=== PATIENT | male | born 1990 | race Hispanic/Latino ===

== ENCOUNTER 2020-10-17 23:58 | Inpatient (IN) | payer OTHER, SELFPAY ==
[2020-10-18] MEDS ORDERED: Dextrose 50% Abboject 50 ML SYRINGE IVP PRN (02:00)
[2020-10-18] MEDS ORDERED: Insulin Regular 300 UNITS/3 ML VIAL IVP SCH ×2 (02:00→04:45)
[2020-10-18] MEDS ORDERED: Dextrose 5% in Water 1,000 ML IV PRN ×2 (02:00→06:18)
[2020-10-18] MEDS ORDERED: Ondansetron PF 4 MG/2 ML Vial IVP PRN (02:07)
[2020-10-18] MEDS ORDERED: Ondansetron ODT 4 MG TAB PO PRN (02:07)
[2020-10-18] MEDS ORDERED: Dexamethasone 4 mg/ml Vial SLOW IVP SCH (02:30)
[2020-10-18] MEDS ORDERED: Ascorbic Acid 500 mg Chewable Tablet PO SCH (02:30)
[2020-10-18] MEDS ORDERED: Cholecalciferol 1,000 UNITS (25 MCG) TAB PO SCH (02:30)
[2020-10-18] MEDS: Sodium Chloride 0.9% 1,000 ML IV SCH ×2 (02:37→15:51)
[2020-10-18 03:03] VITALS: BMI 53.4
[2020-10-18] MEDS ORDERED: Dextrose 50% Abboject 50 ML SYRINGE SLOW IVP PRN (06:18)
[2020-10-18 06:33] LABS: #Monocytes 0.4 10x3/uL (0.0-1.1); #Neutrophils 5.8 10x3/uL (1.5-8.4); %Basophils 0.3 % (0.0-2.0); %Lymphocytes 7.6 % (18.0-47.0); %Neutrophils 85.4 % (40.0-75.0); Hemoglobin 15.4 g/dL (13.5-17.5); Mean Corpuscular HGB CONC 33.1 g/dL (32.0-36.0); Mean Corpuscular Hemoglobin 27.3 pg (27.0-33.0); Mean Corpuscular Volume 82.3 fl (81.2-95.1); Mean Platelet Volume 11.3 fl (7.4-10.4); Platelet Count 144 10x3/uL (150-450); RBC Distribution Width 13.6 % (11.5-14.5); Red Blood Cell (RBC) Count 5.65 10x6/uL (4.32-5.72); White Blood Cell (WBC) Count 6.8 10x3/uL (3.5-10.5)
[2020-10-18 07:05] LABS: Anion Gap 18 mmol/L (10-20); BUN (Urea Nitrogen) 10 mg/dL (8.9-20.6); CK (CPK) 575 U/L (30-200); Calc. Creatinine Clearance 313 mL/min (70-130); Calcium 7.3 mg/dL (7.8-10.44); Carbon Dioxide 23 mmol/L (22-29); Chloride 97 mmol/L (98-107); Glucose 290 mg/dL (70-105); Magnesium 1.9 mg/dL (1.6-2.6); Potassium 3.8 mmol/L (3.5-5.1); Sodium 134 mmol/L (136-145)
[2020-10-18 07:06] LABS: D-Dimer Test 0.28 mg/L FEU (0.19-0.50); PTT 29.2 sec (22.0-33.0); Prothrombin Time 11.4 sec (9.5-12.1)
[2020-10-18] MEDS ORDERED: Lantus 1000 UNITS/10 ML VIAL SC SCH ×2 (09:00→21:00)
[2020-10-18] MEDS: Colchicine 0.6 MG TAB PO SCH (09:12)
[2020-10-18] MEDS: Aspirin 81 mg Enteric Coated Tablet PO SCH (09:12)
[2020-10-18] MEDS: Ascorbic Acid 500 mg Chewable Tablet PO SCH (09:12)
[2020-10-18] MEDS: Cholecalciferol 1,000 UNITS (25 MCG) TAB PO SCH (09:12)
[2020-10-18] MEDS: Zinc Sulfate 220 MG CAP PO SCH (09:12)
[2020-10-18] MEDS: Acetaminophen 325 MG TAB PO PRN (09:13)
[2020-10-18] MEDS: HumaLOG 300 UNITS/3 ML VIAL SC SCH ×3 (09:13→17:32)
[2020-10-18] MEDS: Enoxaparin Sodium 120 MG/0.8 ML SYRINGE SC SCH ×2 (09:17→21:56)
[2020-10-18] MEDS: Dexamethasone 4 mg/ml Vial SLOW IVP SCH (09:20)
[2020-10-18] MEDS: Famotidine/PF 20 mg/2ml Vial SLOW IVP SCH ×2 (09:20→21:56)
[2020-10-18 18:19] LABS: Actual Bicarbonate (HCO3a) 21.2 mEq/L (22-28); Base Excess (BEa) -3.2 mEq/L (-2.0 to +3.0); CO2 Tension 36.5 mmHg (35.0-45.0); Calcium, Ionized (arterial) 1.04 mmol/L (1.12-1.30); Carboxyhemoglobin (COHb) 0.6 gm% (0.0-3.0); Hemoglobin (Hb) 16.5 g/dL (14.0-18.0); O2 Tension (PaO2), arterial 51.8 mmHg (80.0-100.0); Puncture Site LBA; pH, Arterial 7.38 (7.35-7.45)
[2020-10-18 18:20] LABS: ALV-art Gradient 259.075 mmHg (0-20)
[2020-10-18] MEDS: HumaLOG 300 UNITS/3 ML VIAL SC PRN (21:00)
[2020-10-19] MEDS: Acetaminophen 325 MG TAB PO PRN ×2 (03:07→09:19)
[2020-10-19] MEDS ORDERED: Dextrose 50% Abboject 50 ML SYRINGE SLOW IVP PRN (03:27)
[2020-10-19] MEDS ORDERED: Dextrose 5% in Water 1,000 ML IV PRN (03:27)
[2020-10-19] MEDS: HumaLOG 300 UNITS/3 ML VIAL SC PRN ×2 (05:29→22:05)
[2020-10-19] MEDS: HumaLOG 300 UNITS/3 ML VIAL SC SCH ×3 (08:50→17:28)
[2020-10-19] MEDS: Enoxaparin Sodium 40 MG/0.4 ML SYRINGE SC SCH ×2 (08:56→21:21)
[2020-10-19] MEDS: Ascorbic Acid 500 mg Chewable Tablet PO SCH (08:56)
[2020-10-19] MEDS: Cholecalciferol 1,000 UNITS (25 MCG) TAB PO SCH (08:57)
[2020-10-19] MEDS: Colchicine 0.6 MG TAB PO SCH (08:57)
[2020-10-19] MEDS: Zinc Sulfate 220 MG CAP PO SCH (08:57)
[2020-10-19] MEDS: Aspirin 81 mg Enteric Coated Tablet PO SCH (08:57)
[2020-10-19] MEDS: Famotidine/PF 20 mg/2ml Vial SLOW IVP SCH ×2 (08:58→21:21)
[2020-10-19] MEDS: Dexamethasone 4 mg/ml Vial SLOW IVP SCH (08:59)
[2020-10-19] MEDS ORDERED: Lantus 1000 UNITS/10 ML VIAL SC SCH ×2 (09:00→21:00)
[2020-10-19 11:40] LABS: Actual Bicarbonate (HCO3a) 23.2 mEq/L (22-28); Base Excess (BEa) -2.6 mEq/L (-2.0 to +3.0); CO2 Tension 43.6 mmHg (35.0-45.0); Calcium, Ionized (arterial) 1.07 mmol/L (1.12-1.30); Carboxyhemoglobin (COHb) 0.3 gm% (0.0-3.0); Hemoglobin (Hb) 16.1 g/dL (14.0-18.0); O2 Tension (PaO2), arterial 96.8 mmHg (80.0-100.0); Puncture Site RRA; pH, Arterial 7.34 (7.35-7.45)
[2020-10-19] MEDS: Sodium Chloride 0.9% 1,000 ML IV SCH ×2 (15:04→21:21)
[2020-10-20] MEDS ORDERED: Dextrose 50% Abboject 50 ML SYRINGE SLOW IVP PRN (03:04)
[2020-10-20] MEDS ORDERED: Dextrose 5% in Water 1,000 ML IV PRN (03:04)
[2020-10-20] MEDS ORDERED: HUMULIN R 100 UNITS in Sodium Chloride 0.9% 100 ML IVPB SCH (03:15)
[2020-10-20] MEDS: INSULIN REGULAR IN 0.9 % NACL 100 UNIT in Premix Bag 1 BAG IVPB SCH ×2 (03:16→13:11)
[2020-10-20] MEDS: Sodium Chloride 0.9% 1,000 ML IV SCH ×2 (03:17→16:12)
[2020-10-20 03:50] LABS: Actual Bicarbonate (HCO3a) 26.5 mEq/L (22-28); Base Excess (BEa) 0.4 mEq/L (-2.0 to +3.0); CO2 Tension 47.9 mmHg (35.0-45.0); Calcium, Ionized (arterial) 1.08 mmol/L (1.12-1.30); Carboxyhemoglobin (COHb) 0.3 gm% (0.0-3.0); Hemoglobin (Hb) 15.7 g/dL (14.0-18.0); O2 Tension (PaO2), arterial 75.5 mmHg (80.0-100.0); Potassium - ABG Lab 3.9 mmol/L (3.70-5.30); Puncture Site RRA; pH, Arterial 7.36 (7.35-7.45)
[2020-10-20 03:52] LABS: ALV-art Gradient 577.625 mmHg (0-20)
[2020-10-20] MEDS ORDERED: Furosemide 20 MG/2 ML VIAL SLOW IVP SCH ×2 (04:15)
[2020-10-20 04:41] LABS: #Monocytes 0.3 10x3/uL (0.0-1.1); #Neutrophils 6.8 10x3/uL (1.5-8.4); %Basophils 0.1 % (0.0-2.0); %Lymphocytes 8.6 % (18.0-47.0); %Monocytes 3.4 % (0.0-10.0); %Neutrophils 87.1 % (40.0-75.0); Hemoglobin 15.4 g/dL (13.5-17.5); Mean Corpuscular HGB CONC 32.9 g/dL (32.0-36.0); Mean Corpuscular Hemoglobin 27.6 pg (27.0-33.0); Mean Corpuscular Volume 83.9 fl (81.2-95.1); Mean Platelet Volume 10.5 fl (7.4-10.4); Platelet Count 249 10x3/uL (150-450); RBC Distribution Width 13.8 % (11.5-14.5); Red Blood Cell (RBC) Count 5.58 10x6/uL (4.32-5.72); White Blood Cell (WBC) Count 7.8 10x3/uL (3.5-10.5)
[2020-10-20 04:57] LABS: D-Dimer Test 0.22 mg/L FEU (0.19-0.50); PTT 27.4 sec (22.0-33.0); Prothrombin Time 11.1 sec (9.5-12.1)
[2020-10-20 05:02] LABS: ALT (SGPT) 55 U/L (8-55); AST (SGOT) 47 U/L (5-34); Albumin 3.1 g/dL (3.5-5.0); Alkaline Phosphatase 49 U/L (40-110); Anion Gap 20 mmol/L (10-20); BUN (Urea Nitrogen) 9 mg/dL (8.9-20.6); Bilirubin, Total 0.4 mg/dL (0.2-1.2); Calc. Creatinine Clearance 381 mL/min (70-130); Calcium 7.9 mg/dL (7.8-10.44); Carbon Dioxide 24 mmol/L (22-29); Chloride 104 mmol/L (98-107); Globulin 3.5 g/dL (2.4-3.5); Glucose 280 mg/dL (70-105); Magnesium 2.7 mg/dL (1.6-2.6); Protein, Total 6.6 g/dL (6.0-8.3); Sodium 144 mmol/L (136-145)
[2020-10-20] MEDS: Dexamethasone 4 mg/ml Vial SLOW IVP SCH (08:36)
[2020-10-20] MEDS: Famotidine/PF 20 mg/2ml Vial SLOW IVP SCH ×2 (08:36→21:59)
[2020-10-20] MEDS: Aspirin 81 mg Enteric Coated Tablet PO SCH (08:37)
[2020-10-20] MEDS: Colchicine 0.6 MG TAB PO SCH (08:37)
[2020-10-20] MEDS: Zinc Sulfate 220 MG CAP PO SCH (08:37)
[2020-10-20] MEDS: Enoxaparin Sodium 40 MG/0.4 ML SYRINGE SC SCH ×2 (08:37→21:59)
[2020-10-20] MEDS: Ascorbic Acid 500 mg Chewable Tablet PO SCH (08:37)
[2020-10-20] MEDS: Cholecalciferol 1,000 UNITS (25 MCG) TAB PO SCH (08:37)
[2020-10-21] MEDS: INSULIN REGULAR IN 0.9 % NACL 100 UNIT in Premix Bag 1 BAG IVPB SCH (02:40)
[2020-10-21 04:32] LABS: #Monocytes 0.3 10x3/uL (0.0-1.1); #Neutrophils 5.8 10x3/uL (1.5-8.4); %Basophils 0.1 % (0.0-2.0); %Lymphocytes 10.4 % (18.0-47.0); %Monocytes 4.2 % (0.0-10.0); %Neutrophils 84.3 % (40.0-75.0); Hemoglobin 15.8 g/dL (13.5-17.5); Mean Corpuscular HGB CONC 32.4 g/dL (32.0-36.0); Mean Corpuscular Hemoglobin 27.4 pg (27.0-33.0); Mean Corpuscular Volume 84.6 fl (81.2-95.1); Mean Platelet Volume 10.8 fl (7.4-10.4); Platelet Count 327 10x3/uL (150-450); RBC Distribution Width 13.7 % (11.5-14.5); Red Blood Cell (RBC) Count 5.77 10x6/uL (4.32-5.72); White Blood Cell (WBC) Count 6.9 10x3/uL (3.5-10.5)
[2020-10-21 04:45] LABS: Anion Gap 16 mmol/L (10-20); BUN (Urea Nitrogen) 11 mg/dL (8.9-20.6); Calc. Creatinine Clearance 434 mL/min (70-130); Carbon Dioxide 28 mmol/L (22-29); Chloride 105 mmol/L (98-107); Glucose 182 mg/dL (70-105); Magnesium 2.5 mg/dL (1.6-2.6); Potassium 3.7 mmol/L (3.5-5.1); Sodium 145 mmol/L (136-145)
[2020-10-21] MEDS: Enoxaparin Sodium 40 MG/0.4 ML SYRINGE SC SCH ×2 (08:46→20:56)
[2020-10-21] MEDS: Colchicine 0.6 MG TAB PO SCH (08:47)
[2020-10-21] MEDS: Ascorbic Acid 500 mg Chewable Tablet PO SCH (08:47)
[2020-10-21] MEDS: Dexamethasone 4 mg/ml Vial SLOW IVP SCH (08:47)
[2020-10-21] MEDS: Famotidine/PF 20 mg/2ml Vial SLOW IVP SCH ×2 (08:47→20:56)
[2020-10-21] MEDS: Zinc Sulfate 220 MG CAP PO SCH (08:48)
[2020-10-21] MEDS: Aspirin 81 mg Enteric Coated Tablet PO SCH (08:48)
[2020-10-21] MEDS: Cholecalciferol 1,000 UNITS (25 MCG) TAB PO SCH (08:48)
[2020-10-21 09:14] LABS: Hemoglobin A1c 12.4 % (4.0-6.0)
[2020-10-21] MEDS ORDERED: Dextrose 50% Abboject 50 ML SYRINGE SLOW IVP PRN ×2 (10:53→16:50)
[2020-10-21] MEDS ORDERED: Dextrose 5% in Water 1,000 ML IV PRN ×2 (10:53→16:50)
[2020-10-21] MEDS ORDERED: Furosemide 100 MG/10 ML VIAL SLOW IVP SCH (11:45)
[2020-10-21] MEDS: HumaLOG 300 UNITS/3 ML VIAL SC PRN ×2 (17:03→21:22)
[2020-10-21] MEDS: Furosemide 40 MG/4 ML VIAL SLOW IVP SCH (20:56)
[2020-10-22] MEDS: HumaLOG 300 UNITS/3 ML VIAL SC PRN ×6 (00:20→19:58)
[2020-10-22 04:50] LABS: Anion Gap 18 mmol/L (10-20); BUN (Urea Nitrogen) 14 mg/dL (8.9-20.6); Calc. Creatinine Clearance 391 mL/min (70-130); Calcium 8.4 mg/dL (7.8-10.44); Carbon Dioxide 30 mmol/L (22-29); Chloride 99 mmol/L (98-107); Glucose 175 mg/dL (70-105); Potassium 3.4 mmol/L (3.5-5.1); Sodium 144 mmol/L (136-145)
[2020-10-22] MEDS: Dexamethasone 4 mg/ml Vial SLOW IVP SCH (08:57)
[2020-10-22] MEDS: Famotidine/PF 20 mg/2ml Vial SLOW IVP SCH ×2 (08:57→19:46)
[2020-10-22] MEDS: Enoxaparin Sodium 40 MG/0.4 ML SYRINGE SC SCH ×2 (08:57→19:46)
[2020-10-22] MEDS: Aspirin 81 mg Enteric Coated Tablet PO SCH (08:57)
[2020-10-22] MEDS: Colchicine 0.6 MG TAB PO SCH (08:58)
[2020-10-22] MEDS: Zinc Sulfate 220 MG CAP PO SCH (08:58)
[2020-10-22] MEDS: Cholecalciferol 1,000 UNITS (25 MCG) TAB PO SCH (08:58)
[2020-10-22] MEDS: Ascorbic Acid 500 mg Chewable Tablet PO SCH (08:58)
[2020-10-22] MEDS: Furosemide 40 MG/4 ML VIAL SLOW IVP SCH ×3 (11:54→19:47)
[2020-10-23] MEDS: HumaLOG 300 UNITS/3 ML VIAL SC PRN ×5 (00:14→21:32)
[2020-10-23 04:55] LABS: Anion Gap 18 mmol/L (10-20); BUN (Urea Nitrogen) 13 mg/dL (8.9-20.6); Calc. Creatinine Clearance 396 mL/min (70-130); Calcium 8.1 mg/dL (7.8-10.44); Carbon Dioxide 33 mmol/L (22-29); Chloride 95 mmol/L (98-107); Glucose 168 mg/dL (70-105); Potassium 3.1 mmol/L (3.5-5.1); Sodium 143 mmol/L (136-145)
[2020-10-23] MEDS: Furosemide 40 MG/4 ML VIAL SLOW IVP SCH ×3 (05:06→21:31)
[2020-10-23] MEDS: Famotidine/PF 20 mg/2ml Vial SLOW IVP SCH ×2 (08:14→21:32)
[2020-10-23] MEDS: Ascorbic Acid 500 mg Chewable Tablet PO SCH (08:16)
[2020-10-23] MEDS: Zinc Sulfate 220 MG CAP PO SCH (08:16)
[2020-10-23] MEDS: Cholecalciferol 1,000 UNITS (25 MCG) TAB PO SCH (08:16)
[2020-10-23] MEDS: Colchicine 0.6 MG TAB PO SCH (08:16)
[2020-10-23] MEDS: Aspirin 81 mg Enteric Coated Tablet PO SCH (08:16)
[2020-10-23] MEDS: Enoxaparin Sodium 40 MG/0.4 ML SYRINGE SC SCH ×2 (08:17→21:37)
[2020-10-23] MEDS: Dexamethasone 4 mg/ml Vial SLOW IVP SCH (08:17)
[2020-10-23] MEDS ORDERED: Potassium Chloride 20 MEQ TAB PO SCH (08:30)
[2020-10-24] MEDS: HumaLOG 300 UNITS/3 ML VIAL SC PRN ×5 (00:12→22:05)
[2020-10-24 04:49] LABS: Anion Gap 20 mmol/L (10-20); BUN (Urea Nitrogen) 15 mg/dL (8.9-20.6); Calc. Creatinine Clearance 386 mL/min (70-130); Calcium 8.6 mg/dL (7.8-10.44); Carbon Dioxide 33 mmol/L (22-29); Chloride 91 mmol/L (98-107); Glucose 181 mg/dL (70-105); Sodium 141 mmol/L (136-145)
[2020-10-24 04:51] LABS: Potassium 2.9 mmol/L (3.5-5.1)
[2020-10-24] MEDS: Potassium Chloride 20 MEQ TAB PO SCH ×2 (05:45→09:29)
[2020-10-24] MEDS: Furosemide 40 MG/4 ML VIAL SLOW IVP SCH ×3 (05:45→21:14)
[2020-10-24] MEDS: Colchicine 0.6 MG TAB PO SCH (09:28)
[2020-10-24] MEDS: Ascorbic Acid 500 mg Chewable Tablet PO SCH (09:28)
[2020-10-24] MEDS: Cholecalciferol 1,000 UNITS (25 MCG) TAB PO SCH (09:28)
[2020-10-24] MEDS: Zinc Sulfate 220 MG CAP PO SCH (09:29)
[2020-10-24] MEDS: Enoxaparin Sodium 40 MG/0.4 ML SYRINGE SC SCH ×2 (09:30→21:14)
[2020-10-24] MEDS: Famotidine/PF 20 mg/2ml Vial SLOW IVP SCH (09:30)
[2020-10-24] MEDS: Aspirin 81 mg Enteric Coated Tablet PO SCH (09:30)
[2020-10-24] MEDS: Dexamethasone 4 mg/ml Vial SLOW IVP SCH (09:31)
[2020-10-24] MEDS ORDERED: Dextrose 50% Abboject 50 ML SYRINGE SLOW IVP PRN (11:12)
[2020-10-24] MEDS ORDERED: Dextrose 5% in Water 1,000 ML IV PRN (11:12)
[2020-10-24] MEDS ORDERED: Lantus 1000 UNITS/10 ML VIAL SC SCH (13:00)
[2020-10-24] MEDS: Lantus 1000 UNITS/10 ML VIAL SC SCH (21:14)
[2020-10-25] MEDS: HumaLOG 300 UNITS/3 ML VIAL SC PRN ×5 (00:09→22:00)
[2020-10-25] MEDS: Furosemide 40 MG/4 ML VIAL SLOW IVP SCH (05:54)
[2020-10-25 06:15] LABS: Anion Gap 19 mmol/L (10-20); BUN (Urea Nitrogen) 17 mg/dL (8.9-20.6); CRP (Inflammatory) 0.52 mg/dL (= or < 0.5); Calc. Creatinine Clearance 386 mL/min (70-130); Calcium 8.8 mg/dL (7.8-10.44); Carbon Dioxide 33 mmol/L (22-29); Chloride 91 mmol/L (98-107); Glucose 193 mg/dL (70-105); Magnesium 2.1 mg/dL (1.6-2.6); Potassium 2.8 mmol/L (3.5-5.1); Sodium 140 mmol/L (136-145)
[2020-10-25] MEDS: Potassium Chloride 20 MEQ TAB PO SCH ×2 (06:43→08:42)
[2020-10-25 07:34] LABS: Hemoglobin 17.9 g/dL (13.5-17.5); Mean Corpuscular Hemoglobin 27.3 pg (27.0-33.0); Mean Corpuscular Volume 82.8 fl (81.2-95.1); Mean Platelet Volume 11.1 fl (7.4-10.4); Platelet Count 340 10x3/uL (150-450); RBC Distribution Width 12.9 % (11.5-14.5); Red Blood Cell (RBC) Count 6.56 10x6/uL (4.32-5.72); White Blood Cell (WBC) Count 12.5 10x3/uL (3.5-10.5)
[2020-10-25 07:35] LABS: Band 7 % (5-11); Eosinophils 2 % (0-10); Lymphocytes 14 % (21-51); MDiff Complete? YES; Monocytes 5 % (0-10); Neutrophil 72 % (42-75)
[2020-10-25 07:36] LABS: Platelet Morphology Comment Appears Adequate; RBC Morphology Normal
[2020-10-25] MEDS: Cholecalciferol 1,000 UNITS (25 MCG) TAB PO SCH (08:42)
[2020-10-25] MEDS: Aspirin 81 mg Enteric Coated Tablet PO SCH (08:42)
[2020-10-25] MEDS: Zinc Sulfate 220 MG CAP PO SCH (08:42)
[2020-10-25] MEDS: Dexamethasone 4 mg/ml Vial SLOW IVP SCH (08:43)
[2020-10-25] MEDS: Enoxaparin Sodium 40 MG/0.4 ML SYRINGE SC SCH ×2 (08:43→21:30)
[2020-10-25] MEDS: Ascorbic Acid 500 mg Chewable Tablet PO SCH (08:43)
[2020-10-25] MEDS: Colchicine 0.6 MG TAB PO SCH (08:43)
[2020-10-25] MEDS: metFORMIN 500 MG TAB PO SCH (17:15)
[2020-10-25] MEDS: Lantus 1000 UNITS/10 ML VIAL SC SCH (21:30)
[2020-10-26] MEDS: HumaLOG 300 UNITS/3 ML VIAL SC PRN ×6 (00:49→22:00)
[2020-10-26 04:01] LABS: Anion Gap 20 mmol/L (10-20); BUN (Urea Nitrogen) 16 mg/dL (8.9-20.6); Calc. Creatinine Clearance 377 mL/min (70-130); Carbon Dioxide 30 mmol/L (22-29); Chloride 90 mmol/L (98-107); Glucose 163 mg/dL (70-105); Magnesium 1.9 mg/dL (1.6-2.6); Sodium 137 mmol/L (136-145)
[2020-10-26 04:08] LABS: Hemoglobin 17.9 g/dL (13.5-17.5); Mean Corpuscular HGB CONC 33.2 g/dL (32.0-36.0); Mean Corpuscular Hemoglobin 27.1 pg (27.0-33.0); Mean Corpuscular Volume 81.7 fl (81.2-95.1); Mean Platelet Volume 10.9 fl (7.4-10.4); Platelet Count 254 10x3/uL (150-450); RBC Distribution Width 13.7 % (11.5-14.5); White Blood Cell (WBC) Count 16.2 10x3/uL (3.5-10.5)
[2020-10-26 05:02] LABS: Band 6 % (5-11); Eosinophils 1 % (0-10); Lymphocytes 7 % (21-51); Monocytes 4 % (0-10); Reactive Lymphocytes 2 % (0-10)
[2020-10-26 05:03] LABS: Neutrophil 79 % (42-75)
[2020-10-26 05:04] LABS: Platelet Clumps MODERATE; Platelet Morphology Comment Appears Adequate
[2020-10-26 05:05] LABS: Manual Diff?? YES
[2020-10-26 05:06] LABS: MDiff Complete? YES; RBC Morphology Normal
[2020-10-26] MEDS: Ascorbic Acid 500 mg Chewable Tablet PO SCH (08:43)
[2020-10-26] MEDS: Furosemide 40 MG TAB PO SCH (08:43)
[2020-10-26] MEDS: metFORMIN 500 MG TAB PO SCH ×2 (08:43→17:29)
[2020-10-26] MEDS: Cholecalciferol 1,000 UNITS (25 MCG) TAB PO SCH (08:44)
[2020-10-26] MEDS: Colchicine 0.6 MG TAB PO SCH (08:44)
[2020-10-26] MEDS: Aspirin 81 mg Enteric Coated Tablet PO SCH (08:44)
[2020-10-26] MEDS: Dexamethasone 4 mg/ml Vial SLOW IVP SCH (08:45)
[2020-10-26] MEDS: Enoxaparin Sodium 40 MG/0.4 ML SYRINGE SC SCH ×2 (08:46→21:30)
[2020-10-26] MEDS: Zinc Sulfate 220 MG CAP PO SCH (08:47)
[2020-10-26] MEDS: Potassium Chloride 20 MEQ TAB PO SCH ×3 (13:37→21:30)
[2020-10-26] MEDS: Lantus 1000 UNITS/10 ML VIAL SC SCH (22:00)
[2020-10-27] MEDS: HumaLOG 300 UNITS/3 ML VIAL SC PRN ×5 (01:00→20:41)
[2020-10-27 05:43] LABS: Hemoglobin 17.4 g/dL (13.5-17.5); Mean Corpuscular HGB CONC 33.5 g/dL (32.0-36.0); Mean Corpuscular Hemoglobin 27.5 pg (27.0-33.0); Mean Corpuscular Volume 82.1 fl (81.2-95.1); Mean Platelet Volume 11.4 fl (7.4-10.4); Platelet Count 188 10x3/uL (150-450); RBC Distribution Width 13.6 % (11.5-14.5); Red Blood Cell (RBC) Count 6.33 10x6/uL (4.32-5.72); White Blood Cell (WBC) Count 17.2 10x3/uL (3.5-10.5)
[2020-10-27 06:07] LABS: Anion Gap 19 mmol/L (10-20); BUN (Urea Nitrogen) 14 mg/dL (8.9-20.6); CRP (Inflammatory) Less than 0.50 mg/dL (= or < 0.5); Calc. Creatinine Clearance 348 mL/min (70-130); Calcium 8.9 mg/dL (7.8-10.44); Carbon Dioxide 29 mmol/L (22-29); Chloride 92 mmol/L (98-107); Glucose 140 mg/dL (70-105); Potassium 3.7 mmol/L (3.5-5.1); Sodium 136 mmol/L (136-145)
[2020-10-27 06:33] LABS: Band 10 % (5-11); Eosinophils 3 % (0-10); Lymphocytes 12 % (21-51); Monocytes 3 % (0-10); Myelocyte 1 % (0-0); Neutrophil 70 % (42-75); Reactive Lymphocytes 1 % (0-10)
[2020-10-27 06:35] LABS: Anisocytosis SLIGHT = 6-15 cells (100X) (0-5/hpf); Microcytosis SLIGHT = 6-15 cells (100X) (0-5/hpf)
[2020-10-27 06:37] LABS: Large Platelets SLIGHT; Platelet Morphology Comment Appears Adequate
[2020-10-27 06:40] LABS: MDiff Complete? YES; Manual Diff?? YES
[2020-10-27 06:41] LABS: Platelet Clumps SLIGHT
[2020-10-27] MEDS: Dexamethasone 4 mg/ml Vial SLOW IVP SCH (08:06)
[2020-10-27] MEDS: Enoxaparin Sodium 40 MG/0.4 ML SYRINGE SC SCH ×2 (08:06→20:40)
[2020-10-27] MEDS: Colchicine 0.6 MG TAB PO SCH (08:07)
[2020-10-27] MEDS: Aspirin 81 mg Enteric Coated Tablet PO SCH (08:07)
[2020-10-27] MEDS: Potassium Chloride 20 MEQ TAB PO SCH (08:07)
[2020-10-27] MEDS: Furosemide 40 MG TAB PO SCH (08:07)
[2020-10-27] MEDS: metFORMIN 500 MG TAB PO SCH ×2 (08:07→16:36)
[2020-10-27] MEDS: Ascorbic Acid 500 mg Chewable Tablet PO SCH (08:08)
[2020-10-27] MEDS: Cholecalciferol 1,000 UNITS (25 MCG) TAB PO SCH (08:08)
[2020-10-27] MEDS: Zinc Sulfate 220 MG CAP PO SCH (08:08)
[2020-10-27] MEDS: Lantus 1000 UNITS/10 ML VIAL SC SCH (20:40)
[2020-10-28] MEDS: HumaLOG 300 UNITS/3 ML VIAL SC PRN ×5 (00:24→20:47)
[2020-10-28] MEDS: Potassium Chloride 20 MEQ TAB PO SCH (07:41)
[2020-10-28] MEDS: Ascorbic Acid 500 mg Chewable Tablet PO SCH (07:41)
[2020-10-28] MEDS: Furosemide 40 MG TAB PO SCH (07:41)
[2020-10-28] MEDS: Colchicine 0.6 MG TAB PO SCH (07:42)
[2020-10-28] MEDS: Aspirin 81 mg Enteric Coated Tablet PO SCH (07:42)
[2020-10-28] MEDS: metFORMIN 500 MG TAB PO SCH ×2 (07:42→16:53)
[2020-10-28] MEDS: Cholecalciferol 1,000 UNITS (25 MCG) TAB PO SCH (07:43)
[2020-10-28] MEDS: Zinc Sulfate 220 MG CAP PO SCH (07:43)
[2020-10-28] MEDS: Dexamethasone 4 mg/ml Vial SLOW IVP SCH (07:43)
[2020-10-28] MEDS: Enoxaparin Sodium 40 MG/0.4 ML SYRINGE SC SCH ×2 (07:43→21:51)
[2020-10-28] MEDS ORDERED: HYDROcodone/Acetaminophen 5/325 mg Tablet PO PRN (09:27)
[2020-10-28] MEDS ORDERED: Loperamide HCl 2 MG CAP PO PRN (09:27)
[2020-10-28] MEDS ORDERED: Bisacodyl 5 MG TAB PO PRN (09:27)
[2020-10-28] MEDS ORDERED: hydrALAZINE 20 MG/ML VIAL SLOW IVP PRN (09:27)
[2020-10-28] MEDS ORDERED: Zolpidem Tartrate 5 MG TAB PO PRN (09:27)
[2020-10-28] MEDS ORDERED: Calcium Carbonate 500 MG ChewTAB PO PRN (09:27)
[2020-10-28] MEDS ORDERED: Sodium Chloride 0.65% Nasal 44 ML BOT EA NARE PRN (09:27)
[2020-10-28] MEDS ORDERED: Loratadine 10 MG TAB PO PRN (09:27)
[2020-10-28] MEDS ORDERED: Cepastat Lozenges 1 LOZ PO PRN (09:27)
[2020-10-28] MEDS ORDERED: Benzonatate 100 MG CAP PO PRN (09:27)
[2020-10-28] MEDS ORDERED: Senokot S 8.6-50 MG TAB PO PRN (09:27)
[2020-10-28] MEDS ORDERED: Lantus 1000 UNITS/10 ML VIAL SC SCH (10:00)
[2020-10-28] MEDS ORDERED: Hydrocerin (Eucerin) Cream 120 gm Jar TOP PRN (10:10)
[2020-10-28] MEDS ORDERED: guaiFENesin 100 MG/5 ML UDCUP PO PRN (10:10)
[2020-10-28] MEDS: Lantus 1000 UNITS/10 ML VIAL SC SCH (23:00)
[2020-10-29] MEDS: HumaLOG 300 UNITS/3 ML VIAL SC PRN ×5 (01:10→20:20)
[2020-10-29] MEDS: Furosemide 40 MG TAB PO SCH (08:38)
[2020-10-29] MEDS: Ascorbic Acid 500 mg Chewable Tablet PO SCH (08:38)
[2020-10-29] MEDS: Zinc Sulfate 220 MG CAP PO SCH (08:38)
[2020-10-29] MEDS: Potassium Chloride 20 MEQ TAB PO SCH (08:38)
[2020-10-29] MEDS: Aspirin 81 mg Enteric Coated Tablet PO SCH (08:38)
[2020-10-29] MEDS: Enoxaparin Sodium 40 MG/0.4 ML SYRINGE SC SCH ×2 (08:39→20:15)
[2020-10-29] MEDS: Cholecalciferol 1,000 UNITS (25 MCG) TAB PO SCH (08:39)
[2020-10-29] MEDS: Colchicine 0.6 MG TAB PO SCH (08:39)
[2020-10-29] MEDS: Dexamethasone 4 mg/ml Vial SLOW IVP SCH (08:39)
[2020-10-29] MEDS: metFORMIN 500 MG TAB PO SCH ×2 (08:39→17:06)
[2020-10-29] MEDS: Lantus 1000 UNITS/10 ML VIAL SC SCH ×2 (08:40→20:25)
[2020-10-30] MEDS: HumaLOG 300 UNITS/3 ML VIAL SC PRN (01:00)
[2020-10-30] MEDS: Aspirin 81 mg Enteric Coated Tablet PO SCH (09:15)
[2020-10-30] MEDS: Potassium Chloride 20 MEQ TAB PO SCH (09:15)
[2020-10-30] MEDS: Lantus 1000 UNITS/10 ML VIAL SC SCH ×2 (09:15→21:54)
[2020-10-30] MEDS: metFORMIN 500 MG TAB PO SCH ×2 (09:15→17:06)
[2020-10-30] MEDS: Ascorbic Acid 500 mg Chewable Tablet PO SCH (09:15)
[2020-10-30] MEDS: Enoxaparin Sodium 40 MG/0.4 ML SYRINGE SC SCH ×2 (09:15→21:53)
[2020-10-30] MEDS: Cholecalciferol 1,000 UNITS (25 MCG) TAB PO SCH (09:15)
[2020-10-30] MEDS: Colchicine 0.6 MG TAB PO SCH (09:15)
[2020-10-30] MEDS: Furosemide 40 MG TAB PO SCH (09:15)
[2020-10-30] MEDS: Zinc Sulfate 220 MG CAP PO SCH (09:15)
[2020-10-31 05:57] VITALS: BP 138/72; TEMP 98.3
[2020-10-31] MEDS: Ascorbic Acid 500 mg Chewable Tablet PO SCH (09:05)
[2020-10-31] MEDS: Furosemide 40 MG TAB PO SCH (09:05)
[2020-10-31] MEDS: Cholecalciferol 1,000 UNITS (25 MCG) TAB PO SCH (09:05)
[2020-10-31] MEDS: Potassium Chloride 20 MEQ TAB PO SCH (09:05)
[2020-10-31] MEDS: Aspirin 81 mg Enteric Coated Tablet PO SCH (09:05)
[2020-10-31] MEDS: metFORMIN 500 MG TAB PO SCH (09:05)
[2020-10-31] MEDS: Colchicine 0.6 MG TAB PO SCH (09:06)
[2020-10-31] MEDS: Lantus 1000 UNITS/10 ML VIAL SC SCH (09:06)
[2020-10-31] MEDS: Enoxaparin Sodium 40 MG/0.4 ML SYRINGE SC SCH (09:06)
[2020-10-31] MEDS: Zinc Sulfate 220 MG CAP PO SCH (09:06)
== END 2020-10-31 16:00 | disposition home or self-care (01) | DRG 871 ==
LOC: CSHTELE 23:58 → OBSVTOIN 10-18 02:07 → CSHICU 10-19 18:05 → CSHTELE 10-28 15:38
PROVIDERS: ADMIT Family Medicine; ATTEND Internal Medicine
PROC: 8E0ZXY6 Isolation (ICD-10-PCS; principal; 2020-10-18)
PROC: 5A09457 Assistance with Respiratory Ventilation, 24-96 Consecutive Hours, Continuous Positive Airway Pressure (ICD-10-PCS; 2020-10-18)
PROC: XW033H5 Introduction of Tocilizumab into Peripheral Vein, Percutaneous Approach, New Technology Group 5 (ICD-10-PCS; 2020-10-19)
DX: A41.89 Other specified sepsis (principal); U07.1 COVID-19; J12.82 Pneumonia due to coronavirus disease 2019; J96.01 Acute respiratory failure with hypoxia; Z68.43 Body mass index [BMI] 50.0-59.9, adult; E87.3 Alkalosis; E66.01 Morbid (severe) obesity due to excess calories; E86.0 Dehydration; I10 Essential (primary) hypertension; E87.6 Hypokalemia; E11.65 Type 2 diabetes mellitus with hyperglycemia; T50.2X5A Adverse effect of carbonic-anhydrase inhibitors, benzothiadiazides and other diuretics, initial encounter; Y92.230 Patient room in hospital as the place of occurrence of the external cause; T38.0X5A Adverse effect of glucocorticoids and synthetic analogues, initial encounter; D72.828 Other elevated white blood cell count
CPT/HCPCS: 0439T; 36415; 36416; 36600; 71045; 80048; 80053; 82550; 82728; 82805; 83036; 83615; 83735; 84484; 85025; 85379; 85610; 85730; 86140; 93306; 94640; 94660; 94760; 94799; J1100; J1650; J1815; J1940; J3262; J3490; J7050; S0028

== ENCOUNTER 2020-11-08 11:42 | Inpatient (IN) | payer SELFPAY ==
[2020-11-08] MEDS ORDERED: Aspirin Chewable 81 MG TAB ONE (12:00)
[2020-11-08] MEDS ORDERED: Magnesium 2 GM/50 ML BAG (IN WATER) ONE (12:01)
[2020-11-08] MEDS ORDERED: cefTRIAXone\\ROCEPHIN 1 GM VIAL ONE (12:01)
[2020-11-08] MEDS ORDERED: methylPREDNISolone Sod Succ/PF 125 MG/2 ML VIAL ONE (12:01)
[2020-11-08] MEDS ORDERED: Azithromycin 500 MG VIAL ONE (12:02)
[2020-11-08 12:52] LABS: #Eosinphils 0.2 10x3/uL (0.0-0.5); #Monocytes 0.8 10x3/uL (0.0-1.1); #Neutrophils 9.8 10x3/uL (1.5-8.4); %Basophils 0.3 % (0.0-2.0); %Eosinophils 1.2 % (0.0-6.0); %Lymphocytes 10.9 % (18.0-47.0); %Monocytes 6.5 % (0.0-10.0); %Neutrophils 79.7 % (40.0-75.0); Hemoglobin 14.3 g/dL (13.5-17.5); Mean Corpuscular HGB CONC 32.1 g/dL (32.0-36.0); Mean Corpuscular Hemoglobin 27.3 pg (27.0-33.0); Mean Corpuscular Volume 84.9 fl (81.2-95.1); Mean Platelet Volume 11.1 fl (7.4-10.4); Platelet Count 131 10x3/uL (150-450); RBC Distribution Width 13.9 % (11.5-14.5); Red Blood Cell (RBC) Count 5.24 10x6/uL (4.32-5.72); White Blood Cell (WBC) Count 12.3 10x3/uL (3.5-10.5)
[2020-11-08 13:04] LABS: ALT (SGPT) 103 U/L (8-55); AST (SGOT) 45 U/L (5-34); Albumin 3.8 g/dL (3.5-5.0); Alkaline Phosphatase 58 U/L (40-110); Anion Gap 17 mmol/L (10-20); BUN (Urea Nitrogen) 6 mg/dL (8.9-20.6); Bilirubin, Total 0.9 mg/dL (0.2-1.2); CK (CPK) 52 U/L (30-200); Calc. Creatinine Clearance 0 mL/min (70-130); Calcium 8.2 mg/dL (7.8-10.44); Carbon Dioxide 26 mmol/L (22-29); Chloride 99 mmol/L (98-107); Globulin 2.6 g/dL (2.4-3.5); Glucose 131 mg/dL (70-105); Protein, Total 6.4 g/dL (6.0-8.3); Sodium 138 mmol/L (136-145)
[2020-11-08] MEDS ORDERED: Enoxaparin Sodium 100 MG/ML SYRINGE ONE (14:13)
[2020-11-08 15:43] VITALS: BMI 51.1
[2020-11-08] MEDS ORDERED: Enoxaparin Sodium 40 MG/0.4 ML SYRINGE SC SCH (15:45)
[2020-11-08] MEDS ORDERED: Cholecalciferol (Vitamin D3) 400 UNITS TAB PO SCH (16:15)
[2020-11-08] MEDS ORDERED: Ascorbic Acid 500 mg Chewable Tablet PO SCH (16:15)
[2020-11-08] MEDS ORDERED: Zinc Sulfate 220 MG CAP PO SCH (16:15)
[2020-11-08] MEDS ORDERED: Thiamine 100 MG TAB PO SCH (16:15)
[2020-11-08] MEDS ORDERED: Furosemide 20 MG/2 ML VIAL SLOW IVP SCH (17:15)
[2020-11-08 17:27] LABS: Cardiac Risk 5.6 (Less than 4.5)
[2020-11-08 18:01] LABS: Actual Bicarbonate (HCO3a) 27.5 mEq/L (22-28); Base Excess (BEa) 2.4 mEq/L (-2.0 to +3.0); CO2 Tension 44.5 mmHg (35.0-45.0); Calcium, Ionized (arterial) 1.12 mmol/L (1.12-1.30); Carboxyhemoglobin (COHb) 0.8 gm% (0.0-3.0); Hemoglobin (Hb) 14.7 g/dL (14.0-18.0); O2 Tension (PaO2), arterial 62.3 mmHg (80.0-100.0); Potassium - ABG Lab 4.2 mmol/L (3.70-5.30); Puncture Site RRA; pH, Arterial 7.41 (7.35-7.45)
[2020-11-08 18:06] LABS: ALV-art Gradient 381.175 mmHg (0-20)
[2020-11-08 19:08] LABS: Bilirubin Neg (Negative); Blood, Urine 10 (Negative); Clarity Clear (Clear); Glucose, Urine (Dipstick) Normal (Negative); Ketone, Urine 50 mg/dL (Negative); Leukocyte Negative (Negative); Nitrite Negative (Negative); Protein, Urine (Dipstick) 100 mg/dl (Neg-Trace)
[2020-11-08 19:17] LABS: Bacteria/HPF Rare-Few HPF (None Seen); RBC/HPF 0-3 HPF (0-3); Squamous Epithelial 0-3 HPF (0-3); Transitional Epithelial 0-3 HPF (None Seen); WBC/HPF 0-3 HPF (0-3)
[2020-11-08] MEDS: Famotidine/PF 20 mg/2ml Vial SLOW IVP SCH (21:23)
[2020-11-09 06:49] LABS: #Monocytes 0.8 10x3/uL (0.0-1.1); #Neutrophils 8.1 10x3/uL (1.5-8.4); %Basophils 0.3 % (0.0-2.0); %Lymphocytes 13.7 % (18.0-47.0); %Monocytes 7.8 % (0.0-10.0); %Neutrophils 76.4 % (40.0-75.0); Hemoglobin 14.1 g/dL (13.5-17.5); Mean Corpuscular HGB CONC 32.6 g/dL (32.0-36.0); Mean Corpuscular Volume 85.7 fl (81.2-95.1); Mean Platelet Volume 11.3 fl (7.4-10.4); Platelet Count 136 10x3/uL (150-450); Red Blood Cell (RBC) Count 5.04 10x6/uL (4.32-5.72); White Blood Cell (WBC) Count 10.6 10x3/uL (3.5-10.5)
[2020-11-09 07:02] LABS: Anion Gap 19 mmol/L (10-20)
[2020-11-09 07:14] LABS: BUN (Urea Nitrogen) 9 mg/dL (8.9-20.6); Calc. Creatinine Clearance 446 mL/min (70-130); Calcium 9.5 mg/dL (7.8-10.44); Carbon Dioxide 25 mmol/L (22-29); Chloride 101 mmol/L (98-107); Glucose 141 mg/dL (70-105); Potassium 4.5 mmol/L (3.5-5.1); Sodium 140 mmol/L (136-145)
[2020-11-09] MEDS: Famotidine/PF 20 mg/2ml Vial SLOW IVP SCH ×2 (07:49→20:20)
[2020-11-09] MEDS: Furosemide 20 MG/2 ML VIAL SLOW IVP SCH (07:50)
[2020-11-09] MEDS: Thiamine 100 MG TAB PO SCH (07:50)
[2020-11-09] MEDS: Zinc Sulfate 220 MG CAP PO SCH (07:50)
[2020-11-09] MEDS: Ascorbic Acid 500 mg Chewable Tablet PO SCH (07:50)
[2020-11-09] MEDS: Cholecalciferol (Vitamin D3) 400 UNITS TAB PO SCH (07:50)
[2020-11-09] MEDS: Enoxaparin Sodium 40 MG/0.4 ML SYRINGE SC SCH (07:50)
[2020-11-09] MEDS ORDERED: Lisinopril 10 MG TAB PO SCH (15:30)
[2020-11-09] MEDS ORDERED: Mag-Al Plus 1200 MG/1200 MG/120 MG/30 ML UDCUP PO PRN (17:09)
[2020-11-09] MEDS ORDERED: Dextrose 5% in Water 1,000 ML IV PRN (22:45)
[2020-11-09] MEDS ORDERED: Dextrose 50% Abboject 50 ML SYRINGE IVP PRN (22:45)
[2020-11-09] MEDS: HumaLOG 300 UNITS/3 ML VIAL SC PRN (22:50)
[2020-11-10 04:19] LABS: Anion Gap 14 mmol/L (10-20); BUN (Urea Nitrogen) 12 mg/dL (8.9-20.6); Calc. Creatinine Clearance 434 mL/min (70-130); Calcium 8.9 mg/dL (7.8-10.44); Carbon Dioxide 27 mmol/L (22-29); Chloride 100 mmol/L (98-107); Glucose 128 mg/dL (70-105); Potassium 3.9 mmol/L (3.5-5.1); Sodium 137 mmol/L (136-145)
[2020-11-10 04:41] LABS: #Monocytes 0.6 10x3/uL (0.0-1.1); #Neutrophils 9.1 10x3/uL (1.5-8.4); %Basophils 0.2 % (0.0-2.0); %Eosinophils 0.1 % (0.0-6.0); %Lymphocytes 12.8 % (18.0-47.0); %Monocytes 5.6 % (0.0-10.0); %Neutrophils 80.2 % (40.0-75.0); Hemoglobin 13.3 g/dL (13.5-17.5); Mean Corpuscular HGB CONC 31.3 g/dL (32.0-36.0); Mean Corpuscular Volume 86.2 fl (81.2-95.1); Mean Platelet Volume 11.8 fl (7.4-10.4); Platelet Count 139 10x3/uL (150-450); RBC Distribution Width 14.1 % (11.5-14.5); Red Blood Cell (RBC) Count 4.93 10x6/uL (4.32-5.72); White Blood Cell (WBC) Count 11.4 10x3/uL (3.5-10.5)
[2020-11-10] MEDS: Zinc Sulfate 220 MG CAP PO SCH (08:01)
[2020-11-10] MEDS: Lisinopril 10 MG TAB PO SCH (08:01)
[2020-11-10] MEDS: Ascorbic Acid 500 mg Chewable Tablet PO SCH (08:01)
[2020-11-10] MEDS: Cholecalciferol (Vitamin D3) 400 UNITS TAB PO SCH (08:01)
[2020-11-10] MEDS: Thiamine 100 MG TAB PO SCH (08:01)
[2020-11-10] MEDS: Famotidine/PF 20 mg/2ml Vial SLOW IVP SCH ×2 (08:01→21:31)
[2020-11-10] MEDS: Furosemide 20 MG/2 ML VIAL SLOW IVP SCH (08:02)
[2020-11-10] MEDS: Enoxaparin Sodium 40 MG/0.4 ML SYRINGE SC SCH (08:02)
[2020-11-10] MEDS: HumaLOG 300 UNITS/3 ML VIAL SC PRN ×2 (16:41→22:58)
[2020-11-10] MEDS ORDERED: Dextrose 5% in Water 1,000 ML IV PRN (16:59)
[2020-11-10] MEDS ORDERED: Dextrose 50% Abboject 50 ML SYRINGE SLOW IVP PRN (16:59)
[2020-11-11 06:03] LABS: #Eosinphils 0.1 10x3/uL (0.0-0.5); #Monocytes 0.8 10x3/uL (0.0-1.1); #Neutrophils 6.5 10x3/uL (1.5-8.4); %Basophils 0.3 % (0.0-2.0); %Eosinophils 0.7 % (0.0-6.0); %Monocytes 8.4 % (0.0-10.0); Mean Corpuscular Hemoglobin 27.5 pg (27.0-33.0); Mean Corpuscular Volume 86.1 fl (81.2-95.1); Platelet Count 165 10x3/uL (150-450); RBC Distribution Width 14.1 % (11.5-14.5); Red Blood Cell (RBC) Count 5.09 10x6/uL (4.32-5.72)
[2020-11-11 06:19] LABS: Anion Gap 17 mmol/L (10-20); BUN (Urea Nitrogen) 14 mg/dL (8.9-20.6); Calc. Creatinine Clearance 399 mL/min (70-130); Carbon Dioxide 28 mmol/L (22-29); Chloride 101 mmol/L (98-107); Glucose 112 mg/dL (70-105); Potassium 3.6 mmol/L (3.5-5.1); Sodium 142 mmol/L (136-145)
[2020-11-11] MEDS: Famotidine/PF 20 mg/2ml Vial SLOW IVP SCH ×2 (09:14→20:50)
[2020-11-11] MEDS: Cholecalciferol (Vitamin D3) 400 UNITS TAB PO SCH (09:15)
[2020-11-11] MEDS: Ascorbic Acid 500 mg Chewable Tablet PO SCH (09:15)
[2020-11-11] MEDS: Zinc Sulfate 220 MG CAP PO SCH (09:15)
[2020-11-11] MEDS: Lisinopril 10 MG TAB PO SCH (09:15)
[2020-11-11] MEDS: Furosemide 20 MG/2 ML VIAL SLOW IVP SCH (09:15)
[2020-11-11] MEDS: Thiamine 100 MG TAB PO SCH (09:15)
[2020-11-11] MEDS: Enoxaparin Sodium 40 MG/0.4 ML SYRINGE SC SCH (09:15)
[2020-11-11] MEDS: HumaLOG 300 UNITS/3 ML VIAL SC PRN ×2 (17:43→21:20)
[2020-11-12] MEDS: HumaLOG 300 UNITS/3 ML VIAL SC PRN ×3 (04:07→22:06)
[2020-11-12 06:18] LABS: #Basophils 0.1 10x3/uL (0.0-0.2); #Eosinphils 0.1 10x3/uL (0.0-0.5); #Monocytes 0.8 10x3/uL (0.0-1.1); #Neutrophils 6.1 10x3/uL (1.5-8.4); %Basophils 0.6 % (0.0-2.0); %Eosinophils 1.3 % (0.0-6.0); %Monocytes 8.6 % (0.0-10.0); %Neutrophils 68.4 % (40.0-75.0); Hemoglobin 14.1 g/dL (13.5-17.5); Mean Corpuscular HGB CONC 31.3 g/dL (32.0-36.0); Mean Corpuscular Hemoglobin 27.3 pg (27.0-33.0); Mean Corpuscular Volume 87.4 fl (81.2-95.1); Mean Platelet Volume 11.6 fl (7.4-10.4); Platelet Count 199 10x3/uL (150-450); RBC Distribution Width 14.1 % (11.5-14.5); Red Blood Cell (RBC) Count 5.16 10x6/uL (4.32-5.72)
[2020-11-12 06:39] LABS: Anion Gap 15 mmol/L (10-20); BUN (Urea Nitrogen) 15 mg/dL (8.9-20.6); Calc. Creatinine Clearance 379 mL/min (70-130); Calcium 8.9 mg/dL (7.8-10.44); Carbon Dioxide 26 mmol/L (22-29); Chloride 103 mmol/L (98-107); Glucose 206 mg/dL (70-105); Potassium 4.1 mmol/L (3.5-5.1); Sodium 140 mmol/L (136-145)
[2020-11-12] MEDS: Famotidine/PF 20 mg/2ml Vial SLOW IVP SCH ×2 (09:33→20:50)
[2020-11-12] MEDS: Enoxaparin Sodium 40 MG/0.4 ML SYRINGE SC SCH (09:33)
[2020-11-12] MEDS: Furosemide 20 MG/2 ML VIAL SLOW IVP SCH (09:33)
[2020-11-12] MEDS: Ascorbic Acid 500 mg Chewable Tablet PO SCH (09:34)
[2020-11-12] MEDS: Lisinopril 10 MG TAB PO SCH (09:34)
[2020-11-12] MEDS: Thiamine 100 MG TAB PO SCH (09:34)
[2020-11-12] MEDS: Zinc Sulfate 220 MG CAP PO SCH (09:34)
[2020-11-12] MEDS: Cholecalciferol (Vitamin D3) 400 UNITS TAB PO SCH (09:34)
[2020-11-13 06:25] LABS: #Basophils 0.1 10x3/uL (0.0-0.2); #Eosinphils 0.2 10x3/uL (0.0-0.5); %Basophils 0.7 % (0.0-2.0); %Eosinophils 1.3 % (0.0-6.0); %Lymphocytes 20.9 % (18.0-47.0); %Monocytes 8.5 % (0.0-10.0); %Neutrophils 66.5 % (40.0-75.0); Hemoglobin 15.7 g/dL (13.5-17.5); Mean Corpuscular HGB CONC 31.7 g/dL (32.0-36.0); Mean Corpuscular Hemoglobin 27.6 pg (27.0-33.0); Mean Platelet Volume 11.6 fl (7.4-10.4); Platelet Count 263 10x3/uL (150-450); RBC Distribution Width 14.3 % (11.5-14.5); Red Blood Cell (RBC) Count 5.69 10x6/uL (4.32-5.72)
[2020-11-13 06:28] LABS: Anion Gap 19 mmol/L (10-20); BUN (Urea Nitrogen) 12 mg/dL (8.9-20.6); Calc. Creatinine Clearance 394 mL/min (70-130); Carbon Dioxide 23 mmol/L (22-29); Chloride 102 mmol/L (98-107); Glucose 137 mg/dL (70-105); Potassium 4.5 mmol/L (3.5-5.1); Sodium 139 mmol/L (136-145)
[2020-11-13] MEDS: Famotidine/PF 20 mg/2ml Vial SLOW IVP SCH ×2 (08:34→22:02)
[2020-11-13] MEDS: Enoxaparin Sodium 40 MG/0.4 ML SYRINGE SC SCH (08:34)
[2020-11-13] MEDS: Ascorbic Acid 500 mg Chewable Tablet PO SCH (08:35)
[2020-11-13] MEDS: Lisinopril 10 MG TAB PO SCH (08:35)
[2020-11-13] MEDS: Cholecalciferol (Vitamin D3) 400 UNITS TAB PO SCH (08:35)
[2020-11-13] MEDS: Furosemide 20 MG/2 ML VIAL SLOW IVP SCH (08:35)
[2020-11-13] MEDS: Thiamine 100 MG TAB PO SCH (08:35)
[2020-11-13] MEDS: Zinc Sulfate 220 MG CAP PO SCH (08:41)
[2020-11-13] MEDS: HumaLOG 300 UNITS/3 ML VIAL SC PRN ×2 (16:45→22:01)
[2020-11-14] MEDS: HumaLOG 300 UNITS/3 ML VIAL SC PRN ×3 (05:49→22:28)
[2020-11-14 06:12] LABS: Anion Gap 24 mmol/L (10-20); BUN (Urea Nitrogen) 15 mg/dL (8.9-20.6); Calc. Creatinine Clearance 374 mL/min (70-130); Calcium 8.9 mg/dL (7.8-10.44); Carbon Dioxide 15 mmol/L (22-29); Chloride 105 mmol/L (98-107); Glucose 153 mg/dL (70-105); Sodium 138 mmol/L (136-145)
[2020-11-14 06:33] LABS: #Basophils 0.1 10x3/uL (0.0-0.2); #Eosinphils 0.2 10x3/uL (0.0-0.5); #Neutrophils 8.1 10x3/uL (1.5-8.4); %Basophils 0.7 % (0.0-2.0); %Eosinophils 1.4 % (0.0-6.0); %Lymphocytes 18.4 % (18.0-47.0); %Monocytes 8.1 % (0.0-10.0); %Neutrophils 68.2 % (40.0-75.0); Hemoglobin 14.8 g/dL (13.5-17.5); Mean Corpuscular HGB CONC 32.7 g/dL (32.0-36.0); Mean Corpuscular Hemoglobin 27.5 pg (27.0-33.0); Mean Corpuscular Volume 84.2 fl (81.2-95.1); Mean Platelet Volume 11.1 fl (7.4-10.4); Platelet Count 247 10x3/uL (150-450); RBC Distribution Width 14.6 % (11.5-14.5); Red Blood Cell (RBC) Count 5.38 10x6/uL (4.32-5.72); White Blood Cell (WBC) Count 11.8 10x3/uL (3.5-10.5)
[2020-11-14 07:01] LABS: Potassium 5.9 mmol/L (3.5-5.1)
[2020-11-14] MEDS: Cholecalciferol (Vitamin D3) 400 UNITS TAB PO SCH (09:05)
[2020-11-14] MEDS: Thiamine 100 MG TAB PO SCH (09:05)
[2020-11-14] MEDS: Furosemide 20 MG/2 ML VIAL SLOW IVP SCH (09:05)
[2020-11-14] MEDS: Lisinopril 10 MG TAB PO SCH (09:05)
[2020-11-14] MEDS: Enoxaparin Sodium 40 MG/0.4 ML SYRINGE SC SCH (09:05)
[2020-11-14] MEDS: Ascorbic Acid 500 mg Chewable Tablet PO SCH (09:06)
[2020-11-14] MEDS: Famotidine/PF 20 mg/2ml Vial SLOW IVP SCH ×2 (09:06→20:35)
[2020-11-14] MEDS: Zinc Sulfate 220 MG CAP PO SCH (09:13)
[2020-11-14] MEDS ORDERED: Furosemide 40 MG/4 ML VIAL SLOW IVP SCH (11:45)
[2020-11-15 04:47] LABS: #Basophils 0.1 10x3/uL (0.0-0.2); #Monocytes 0.7 10x3/uL (0.0-1.1); #Neutrophils 8.6 10x3/uL (1.5-8.4); %Basophils 0.4 % (0.0-2.0); %Eosinophils 0.1 % (0.0-6.0); %Lymphocytes 14.8 % (18.0-47.0); %Monocytes 6.5 % (0.0-10.0); %Neutrophils 75.5 % (40.0-75.0); Mean Corpuscular HGB CONC 32.4 g/dL (32.0-36.0); Mean Corpuscular Hemoglobin 27.6 pg (27.0-33.0); Mean Corpuscular Volume 85.3 fl (81.2-95.1); Mean Platelet Volume 11.1 fl (7.4-10.4); Platelet Count 289 10x3/uL (150-450); RBC Distribution Width 14.3 % (11.5-14.5); Red Blood Cell (RBC) Count 5.43 10x6/uL (4.32-5.72); White Blood Cell (WBC) Count 11.3 10x3/uL (3.5-10.5)
[2020-11-15 04:55] LABS: Anion Gap 17 mmol/L (10-20); BUN (Urea Nitrogen) 17 mg/dL (8.9-20.6); Calc. Creatinine Clearance 388 mL/min (70-130); Calcium 9.1 mg/dL (7.8-10.44); Carbon Dioxide 24 mmol/L (22-29); Chloride 99 mmol/L (98-107); Glucose 196 mg/dL (70-105); Potassium 4.3 mmol/L (3.5-5.1); Sodium 136 mmol/L (136-145)
[2020-11-15] MEDS: HumaLOG 300 UNITS/3 ML VIAL SC PRN ×2 (05:34→13:12)
[2020-11-15] MEDS: Cholecalciferol (Vitamin D3) 400 UNITS TAB PO SCH (09:14)
[2020-11-15] MEDS: Thiamine 100 MG TAB PO SCH (09:14)
[2020-11-15] MEDS: Famotidine/PF 20 mg/2ml Vial SLOW IVP SCH (09:14)
[2020-11-15] MEDS: Zinc Sulfate 220 MG CAP PO SCH (09:14)
[2020-11-15] MEDS: Enoxaparin Sodium 40 MG/0.4 ML SYRINGE SC SCH (09:14)
[2020-11-15] MEDS: Furosemide 20 MG/2 ML VIAL SLOW IVP SCH (09:14)
[2020-11-15] MEDS: Ascorbic Acid 500 mg Chewable Tablet PO SCH (09:14)
[2020-11-15 11:55] VITALS: BP 148/89; TEMP 97.9
== END 2020-11-15 14:55 | disposition home or self-care (01) | DRG 193 ==
LOC: CSHERS 11:42 → CSHICU 13:30 → CSHTELE 11-10 19:16
PROVIDERS: ADMIT Internal Medicine; ATTEND Internal Medicine
PROC: 8E0ZXY6 Isolation (ICD-10-PCS; principal; 2020-11-08)
PROC: 5A09357 Assistance with Respiratory Ventilation, Less than 24 Consecutive Hours, Continuous Positive Airway Pressure (ICD-10-PCS; 2020-11-08)
DX: J18.9 Pneumonia, unspecified organism (principal); J96.01 Acute respiratory failure with hypoxia; Z68.43 Body mass index [BMI] 50.0-59.9, adult; I50.32 Chronic diastolic (congestive) heart failure; B94.8 Sequelae of other specified infectious and parasitic diseases; Z79.84 Long term (current) use of oral hypoglycemic drugs; Z79.82 Long term (current) use of aspirin; Z79.899 Other long term (current) drug therapy; E66.01 Morbid (severe) obesity due to excess calories; E11.9 Type 2 diabetes mellitus without complications
CPT/HCPCS: 36415; 36416; 36600; 71045; 71275; 80048; 80053; 80061; 81001; 82550; 82805; 83605; 84484; 85025; 85379; 86140; 87040; 93005; 94640; 94660; 94760; 94799; 96365; 96366; 96368; 96372; 96375; J0456; J0696; J1650; J1815; J1940; J1956; J2930; J3475; J7620; S0028